=== PATIENT | male | born 1955 | race American Indian/Alaskan Native ===

== ENCOUNTER 2019-05-16 09:16 | Day surgery (SDC) | payer OTHER ==
--- NOTE | 2019-05-16 12:27 | Anesthesia Day of Surgery ---
Anesthesia Day of Surgery - Day of Surgery Patient Examined: Yes Patient H&P Reviewed: Yes Patient is NPO: Yes
--- NOTE | 2019-05-16 12:29 | Anesthesia Consultation ---
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
[2019-05-16] MEDS ORDERED: DIPRIVAN 10 MG/ML IV ONE ×2 (13:00)
[2019-05-16] MEDS ORDERED: NACL 0.9% 1000 ML 1,000 ML IV SCH (13:00)
--- NOTE | 2019-05-16 13:18 | Short Stay Summary ---
Short Stay Documentation Date of service: 05/16/19 Narrative H&P: The patient presents for surveillance colonoscopy for history of colon polyps. Last study 5 years ago. - History Past Medical History: diabetes, hyperlipidemia Past Surgical History: No surgical history Social history: no significant social history, lives with family - Allergies and Medications Current Medications: Allergies No Known Allergies Allergy (Verified 06/22/14 08:25) Home Medications Medication Instructions Recorded Confirmed Last Taken Type Acyclovir 800 mg PO Q8HR 06/20/14 06/20/14 06/20/14 History Albuterol Sulfate [Ventolin HFA] 1 inhalation INHALATION PRN 06/20/14 06/20/14 Unknown History Atorvastatin [Lipitor] 80 mg PO DAILY 06/20/14 06/20/14 06/20/14 History Beclomethasone Dipropionat(Nf) 1 inhalation INHALATION PRN PRN 06/20/14 06/20/14 Unknown History [Qvar 40MCG] Ergocalciferol [Vitamin D2] 50,000 units PO QWEEK 06/20/14 06/20/14 06/20/14 History Ranitidine HCl [Zantac 75 MG TAB] 150 mg PO BID 06/20/14 06/20/14 06/20/14 History metFORMIN XR [Glucophage XR] 500 mg PO BID 06/20/14 06/20/14 06/20/14 History Active Medications Sodium Chloride (Nacl 0.9% 1000 Ml) 1,000 mls @ 50 mls/hr IV DIRECT VIOLETA Last Admin: 05/16/19 11:00 Dose: 50 mls/hr Documented by: - Physical exam General appearance: no acute distress, well-nourished Integumentary: no rash, no growths, no abnormal pigmentation HEENT: Atraumatic, PERRLA, EOMI, Mucous membr. moist/pink Lungs: Clear to auscultation, Normal air movement Breasts: deferred Heart: Regular rate, Normal S1, Normal S2, No murmurs Gastrointestinal: normoactive bowel sounds, no tenderness, no distended, no masses, no guarding, no organomegaly Male Genitourinary: deferred Rectal Exam: normal exam-external/orifice, normal rectal tone, no mass Extremities: no ischemia, pulses intact, pulses symmetrical, No edema, normal temperature, normal color, Full ROM Neurological: Normal gait, Normal speech, Strength at 5/5 X4 ext, Normal tone, Sensation intact, Cranial nerves 3-12 NL - Brief post op/procedure progress note Date of procedure: 05/16/19 Findings: see dictation Estimated blood loss: none Pathology: list (ascending colon polyp) Specimen disposition: to lab Condition: stable - Disposition Condition at discharge: Good Disposition: DC-01 TO HOME OR SELFCARE - Discharge Diagnoses (1) History of colon polyps Status: Acute Short Stay Discharge Plan Activity: other (no driving for 24 hours.) Weight Bearing Status: Full Weight Bearing Diet: regular Additional Instructions: Post Sedation D/C Instructions When you return home you may resume your regular diet unless otherwise directed. -Go directly home from the hospital and rest quietly. You may resume normal activities tomorrow. -Do NOT drive, return to work, operate any machinery or make any important personal or business decisions today. - Do NOT drink any alcohol or take nerve or sleeping drugs. They add to the effects of the medicine still present in your body. Follow up with: NELLIE AVENDAÑO MD [Primary Care Provider] - 7 Days
--- NOTE | 2019-05-16 13:21 | Operative Report ---
Operative Report Operative Report: Date of procedure: 05/16/2019 Preprocedure diagnosis: History of colon polyps. Last study 5 years ago. Post procedure diagnosis: Diminutive polyp in the ascending colon Procedure: Colonoscopy to the cecum with cold forceps polypectomy Endoscopist: Dr. Ace Anesthesia: Monitored anesthesia care per anesthesia department Estimated blood loss: 0 Medications: Monitored anesthesia care. See separate report by anesthesia for details. After careful discussion of the nature and purpose of the procedure as well as details of the technique risks benefits and alternatives the patient gave consent. Please see recent history and physical from the office. The patient was placed in the left lateral decubitus position and medicated per anesthesia. A rectal exam was performed sphincter tone was normal there were no masses palpable. The [place] 570 scope was passed transanally and advanced under continuous direct vision without difficulty to the cecum. The colon was well prepared. The cecum was normal. The ascending colon revealed a 5 mm sessile polyp. The polyp was removed with the cold forceps. The ascending colon was otherwise normal. The transverse colon, descending colon, and sigmoid colon were normal. The rectum was normal on forward and retroflexed views. The procedure was wel l-tolerated overall and the patient was observed in recovery. Conclusions: Diminutive polyp in the ascending colon, otherwise normal study. Plan: Await pathology. Repeat colonoscopy in 5 years. Signed electronically: Jack Ace M.D.
[2019-05-16] MEDS ORDERED: WATER FOR IRRIG STERILE IR ONE (14:07)
[2019-05-16 15:05] VITALS: BP 107/77
== END 2019-05-16 09:17 | disposition home or self-care (01) ==
LOC: GIO 09:16
PROVIDERS: ATTEND Internal Medicine Gastroenterology
DX: Z12.11 Encounter for screening for malignant neoplasm of colon (principal); D12.2 Benign neoplasm of ascending colon; E78.00 Pure hypercholesterolemia, unspecified; I10 Essential (primary) hypertension; E11.9 Type 2 diabetes mellitus without complications; Z98.890 Other specified postprocedural states; Z86.010 Personal history of colon polyps; Z79.899 Other long term (current) drug therapy; Z79.84 Long term (current) use of oral hypoglycemic drugs
CPT/HCPCS: 45380; 82962; 88305; J2704; J7030